=== PATIENT | female | born 1960 | race Caucasian/White ===

== ENCOUNTER 2021-08-21 10:53 | Outpatient (CLI) | payer BC | END 2021-08-21 10:54 | disposition home or self-care (01) | LOC: CSHCT 10:53 | PROVIDERS: ATTEND Student in an Organized Health Care Education/Training Program | DX: H90.3 Sensorineural hearing loss, bilateral (principal) | CPT/HCPCS: 70480 ==

== ENCOUNTER 2023-06-03 09:38 | Outpatient (CLI) | payer BC | END 2023-06-03 09:39 | disposition home or self-care (01) | LOC: CSHCT 09:38 | PROVIDERS: ATTEND Otolaryngology Plastic Surgery within the Head & Neck | DX: H90.3 Sensorineural hearing loss, bilateral (principal); H73.891 Other specified disorders of tympanic membrane, right ear; H74.8X1 Other specified disorders of right middle ear and mastoid | CPT/HCPCS: 70480 ==

== ENCOUNTER 2023-10-08 09:07 | Outpatient (CLI) | payer BC ==
[2023-10-08 11:20] LABS: Anion Gap 12 mmol/L (10-20); BUN (Urea Nitrogen) 17 mg/dL (9.8-20.1); Calc. Creatinine Clearance 0 mL/min (70-130); Calcium 9.5 mg/dL (7.8-10.44); Carbon Dioxide 25 mmol/L (23-31); Chloride 102 mmol/L (98-107); Estimated GFR 87; Glucose 76 mg/dL (80-115); Potassium 4.5 mmol/L (3.5-5.1); Sodium 134 mmol/L (136-145)
[2023-10-08 11:55] LABS: Hematocrit 40.6 % (34.9-44.5); Hemoglobin 13.7 g/dL (12.0-15.5)
== END 2023-10-08 09:08 | disposition home or self-care (01) ==
LOC: CSHLAB 09:07
PROVIDERS: ATTEND Otolaryngology Plastic Surgery within the Head & Neck
DX: Z01.818 Encounter for other preprocedural examination (principal)
CPT/HCPCS: 80048; 85014; 85018

== ENCOUNTER 2023-12-16 07:59 | Outpatient (CLI) | payer BC ==
[2023-12-16 09:12] LABS: Hemoglobin 12.4 g/dL (12.0-15.5)
[2023-12-16 10:03] LABS: Anion Gap 11 mmol/L (10-20); BUN (Urea Nitrogen) 16 mg/dL (9.8-20.1); Calc. Creatinine Clearance 0 mL/min (70-130); Carbon Dioxide 25 mmol/L (23-31); Chloride 105 mmol/L (98-107); Estimated GFR 87; Glucose 79 mg/dL (80-115); Potassium 4.4 mmol/L (3.5-5.1); Sodium 137 mmol/L (136-145)
== END 2023-12-16 08:00 | disposition home or self-care (01) ==
LOC: CSHLAB 07:59
PROVIDERS: ATTEND Otolaryngology Plastic Surgery within the Head & Neck
DX: Z01.818 Encounter for other preprocedural examination (principal); H90.A21 Sensorineural hearing loss, unilateral, right ear, with restricted hearing on the contralateral side
CPT/HCPCS: 80048; 85014; 85018; 93005; 93010

== ENCOUNTER 2023-12-23 07:01 | Day surgery (SDC) | payer BC ==
[2023-12-16 08:33] VITALS: BMI 20.5
[2023-12-23] MEDS ORDERED: Mupirocin 2% Ointment 22 GM Tube ONE (08:30)
[2023-12-23] MEDS ORDERED: Lidocaine 1% (PF) 30 ML VIAL ONE (08:31)
[2023-12-23] MEDS ORDERED: Famotidine/PF 20 mg/2ml Vial ONE (08:42)
[2023-12-23] MEDS ORDERED: Fentanyl 250 MCG/5 ML VIAL ONE (08:52)
[2023-12-23] MEDS ORDERED: Rocuronium Bromide 10 MG/ML (10ML VIAL) ONE (08:52)
[2023-12-23] MEDS ORDERED: Midazolam HCl 2 mg/2 ml Vial ONE (08:52)
[2023-12-23] MEDS ORDERED: Lidocaine 1% PF 5 ML VIAL ONE (08:52)
[2023-12-23] MEDS ORDERED: Dexamethasone 20 MG/5 ML VIAL ONE (08:52)
[2023-12-23] MEDS ORDERED: Ondansetron PF 4 MG/2 ML Vial ONE ×2 (08:52→09:46)
[2023-12-23] MEDS ORDERED: PROPOFOL 20 ML ONE ×2 (08:52→09:48)
[2023-12-23] MEDS ORDERED: EPINEPHrine 1 MG/ML VIAL ONE (09:01)
[2023-12-23] MEDS ORDERED: CEFAZOLIN 1 GM VIAL ONE (09:01)
[2023-12-23] MEDS ORDERED: Glycopyrrolate 0.2 MG/ML 5 ML SYRINGE ONE (09:31)
[2023-12-23] MEDS ORDERED: PHENYLEPHRINE-NS 100 MCG/ML 10 ML SYRINGE ONE (09:39)
[2023-12-23] MEDS ORDERED: Lidocaine 1% w/Epinephrine 1:100K 20 ML VIAL ONE (10:02)
[2023-12-23] MEDS ORDERED: Ketorolac Tromethamine 30 MG (1 mL) VIAL ONE (12:22)
== END 2023-12-23 13:05 | disposition home or self-care (01) ==
LOC: CSHSDC 07:01
PROVIDERS: ATTEND Otolaryngology Plastic Surgery within the Head & Neck
PROC: F0BZ09Z Cochlear Implant Rehabilitation Treatment using Cochlear Implant Equipment (ICD-10-PCS; principal; 2023-12-23)
DX: H90.A21 Sensorineural hearing loss, unilateral, right ear, with restricted hearing on the contralateral side (principal); J45.909 Unspecified asthma, uncomplicated; F32.A Depression, unspecified; F41.9 Anxiety disorder, unspecified; Z87.891 Personal history of nicotine dependence; Z88.5 Allergy status to narcotic agent; Z79.890 Hormone replacement therapy; Z79.899 Other long term (current) drug therapy
CPT/HCPCS: 70250; J0171; J0690; J1100; J1885; J2001; J2250; J2405; J2704; J3010; J3490; L8614; Q9968